=== PATIENT | male | born 1970 | race Caucasian/White ===

== ENCOUNTER 2016-11-19 10:35 | Emergency (ER) | payer OTHER ==
[2016-11-19 11:11] LABS: URINE BILIRUBIN NEGATIVE (NEGATIVE); URINE BLOOD NEGATIVE (NEGATIVE); URINE GLUCOSE (UA) NEGATIVE (NEGATIVE); URINE LEUKOCYTE ESTERASE NEGATIVE (NEGATIVE); URINE NITRITE NEGATIVE (NEGATIVE); URINE PROTEIN NEGATIVE (NEGATIVE); URINE UROBILINOGEN NORMAL (0-1 mg/dl)
[2016-11-19 11:12] LABS: URINE APPEARANCE CLEAR; URINE COLOR AMBER
[2016-11-19 12:28] LABS: ABSOLUTE NEUTROPHIL COUNT 4.9 K/mm3 (1.8-7.7); BASO # 0.1 K/mm3 (0.0-0.2); BASO % 0.9 % (0.2-1.0); EOS # 0.1 (0.0-0.5); EOS % 1.8 % (0.9-2.9); HEMATOCRIT 49.8 % (32.0-52.0); HEMOGLOBIN 16.3 gm/l (14.0-18.0); IMM NEUT% 0.4 % (0-1); MEAN CELL VOLUME 92.7 fl (80.0-94.0); MEAN CORPUSCULAR HEMOGLOBIN 30.4 pg (27.0-31.0); MEAN CORPUSCULAR HGB CONC 32.7 g/dl (33.0-37.0); MEAN PLATELET VOLUME 9.5 fl (7.4-10.4); MONO # 0.8 (0.0-0.8); MONO % 9.6 % (4-12); NEUT % 62.3 % (43-75); PLATELET COUNT 281 K/mm3 (130-400); RED CELL DISTRIBUTION WIDTH 12.5 % (11.5-14.5)
[2016-11-19 12:32] LABS: ALB/GLOB RATIO 1.6 (>1.0); ALBUMIN 4.1 gm/dL (3.5-5.7); CALCIUM 9.2 mg/dL (8.6-10.3)
[2016-11-19] MEDS ORDERED: ONDANSETRON 4 MG/2ML 2 ML VIAL ONE (12:44)
[2016-11-19] MEDS ORDERED: NALBUPHINE HCL 10 MG/ML AMP ONE (12:44)
--- NOTE | 2016-11-19 13:30 | CT ---
CT ABDOMEN AND PELVIS WITHOUT CONTRAST HISTORY: Right flank and groin pain. TECHNIQUE: No intravenous contrast administered; contiguous axial images were acquired from the lung bases to the ischial tuberosities. Oral contrast was not administered. COMPARISON:None. FINDINGS: LUNG BASES: No gross airspace consolidation or pleural effusion. LIVER: No focal mass effect. SPLEEN: No focal mass effect. PANCREAS: No focal mass effect. ADRENAL GLANDS: No mass effect. KIDNEYS: No renal calculi. No collecting system dilatation. GALLBLADDER: Present. BOWEL: Moderate fecal loading. Limited assessment of the distal colon due to decompression. No abnormal small bowel dilatation. Minor changes of diverticulosis without features of acute diverticulitis. APPENDIX: Grossly unremarkable. PELVIC ORGANS: No gross mass effect. FREE FLUID: No gross free fluid identified. INGUINAL REGIONS: Fatty right inguinal hernia. ABDOMINOPELVIC LYMPH NODES: No abnormally enlarged lymph nodes identified. ABDOMINAL AORTA: Normal caliber. OSSEOUS STRUCTURES: Osseous hemangioma formation at the L1 level. Early lumbar disc degeneration with herniation at L4-5. SOFT TISSUES: Small fatty umbilical hernia. Small punctate foreign body of left lateral soft tissues. IMPRESSION: No CT findings of urolithiasis or of upper urinary tract obstruction. Fatty right inguinal hernia of small size. Broad-based disc herniation at L4-5 is suggested. Noninflammatory, nonobstructive appearance of bowel. Colonic diverticulosis without diverticulitis. Results were electronically transmitted to the electronic medical record at 11/19/2016 at 1326 hours.
== END 2016-11-19 14:18 | disposition home or self-care (01) ==
LOC: ED 10:35
DX: R10.9 Unspecified abdominal pain (principal); R11.0 Nausea; R19.7 Diarrhea, unspecified